=== PATIENT | male | born 1975 | race Caucasian/White ===

== ENCOUNTER 2023-03-06 07:55 | Day surgery (SDC) | payer OTHER, SELFPAY ==
[2023-01-23 13:26] VITALS: BMI 27.1
[2023-03-06 09:07] VITALS: BP 157/91; PULSE 78; RESP 16; TEMP 36.7; O2SAT 100
[2023-03-06] MEDS: LACTATED RINGERS 1,000 ML 150 ML IV CONT (09:22)
--- NOTE | 2023-03-06 09:33 | PM.HPGS ---
History of Present Illness History of Present Illness Consent: Risks, benefits, and alternatives have been discussed and questions answered. Patient agrees to proceed with procedure. Chief complaint: Neoplasm Screening Narrative: Hector Benson is a 47 year old male Presents for screening colonoscopy. Patient's current weight appetite and bowel movements are normal. Patient denies abdominal pain. He has had no bleeding. Family history is non contributory. Review of Systems Review of Systems: systems noncontributory. PMF Social History Social History Smoking status: Never smoker Substance use type: does not use Living arrangements: with family Spiritual care concerns: No Meds Home Medications and Allergies Home Medications Medication Instructions Recorded Confirmed Type rosuvastatin 5 mg tablet 5 mg PO HS 02/19/23 03/06/23 History Allergies Allergy/AdvReac Type Severity Reaction Status Date / Time No Known Allergies Allergy Verified 03/06/23 09:03 Vital Signs Vital Signs - 24 hr 03/06/23 09:07 Temperature 98.0 F Pulse Rate 78 Respiratory Rate 16 Blood Pressure 157/91 H Pulse Oximetry 100 Oxygen Delivery Room Air Exam Narrative: Physical exam reveals patient to be a signs stable. HEENT exam is unremarkable. Patient is anicteric. Lungs are clear to auscultation and to percussion. Heart is sounds. Abdomen bowel sounds are present soft nontender with no organomegaly will external rectal exam is normal. Assessment and Plan Assessment and plan (1) Encounter for screening colonoscopy: Code(s): Z12.11 - Encounter for screening for malignant neoplasm of colon Status: Acute Assessment and Plan: Patient appears to be at average risk for colon polyps. Further recommendation Gagandeep Chirinos
--- NOTE | 2023-03-06 09:57 | P.PNAN_ITS ---
Anes - Initial Pre Proc Eval Procedure: Operation Date: 03/06/23 10:30 Proposed Procedures p Screening Colonoscopy - Filipe Darby MD Date/Time: 03/06/23 09:57 Surgeon: Filipe Darby MD Pre Op Diagnosis: Neoplasm Screening Patient Data Age: 47 Gender: M Height: 1.8 m Weight: 88.6 kg Last Vital Signs Temp 36.7 C 03/06/23 09:07 Pulse 78 03/06/23 09:07 Resp 16 03/06/23 09:07 BP 157/91 H 03/06/23 09:07 Pulse Ox 100 03/06/23 09:07 O2 Del Method Room Air 03/06/23 09:07 Allergies Allergy/AdvReac Type Severity Reaction Status Date / Time No Known Allergies Allergy Verified 03/06/23 09:03 Home Medications Medication Instructions Recorded Confirmed Type rosuvastatin 5 mg tablet 5 mg PO HS 02/19/23 03/06/23 History Patient hx anesthesia problems: none Family hx anesthesia problems: none Results Review: All pre-operative results and documents have been reviewed as part of the pre- operative evaluation. PMFSH Past Medical History Medical History (Updated 03/06/23 @ 09:58 by Nilay Ro MD) Hyperlipidemia Melanoma Surgical History Surgical History (Updated 03/06/23 @ 09:58 by Nilay Ro MD) H/O melanoma excision left chest with sentinel node biopsy Social History Social History Smoking status: Never smoker Substance use type: does not use Living arrangements: with family Spiritual care concerns: No Anes - Eval Final PreProcedure Day of Procedure 03/06/23 09:57 Patient weight: overweight Heart: regular rate and rhythm Lungs: clear to auscultation Airway: Mallampati scale class 1 Neurological: alert and oriented Last oral intake: >/= 8 hours ASA classification: II Emergent: no Anesthetic plan: proceed Anesthesia type and monitoring: general GIVS and standard monitoring Results Review: All pre-operative results and documents have been reviewed as part of the pre- operative evaluation. Informed Consent: The patient's anesthetic plan and its attendant risks and benefits were discussed with the patient/family/POA. Questions were solicited and answers provided to the satisfaction of the patient/family/POA.
[2023-03-06 11:03] VITALS: BP 97/71; PULSE 78; RESP 16; O2SAT 100
[2023-03-06 11:13] VITALS: BP 102/60; PULSE 80; RESP 20; O2SAT 100
[2023-03-06 11:23] VITALS: BP 106/68; PULSE 68; RESP 20; O2SAT 100
--- NOTE | 2023-03-06 11:29 | WPDANESPN ---
Anes - Prog Note Post-Op Date/Time: 03/06/23 11:29 Cardiovascular status: normal Respiratory status: normal Airway patency: baseline Mental status: baseline Post-Op hydration status: normal Vital Signs: Last Vital Signs Temp 36.7 C 03/06/23 09:07 Pulse 68 03/06/23 11:23 Resp 20 03/06/23 11:23 BP 106/68 03/06/23 11:23 Pulse Ox 100 03/06/23 11:23 O2 Del Method Room Air 03/06/23 11:23 Pain Score (VAS): 0/10 I/O: Intake & Output 03/05/23 03/06/23 03/06/23 23:59 07:59 15:59 Intake Total 650 Balance 650 Patient Feedback: Patient satisfied with anesthetic care.
== END 2023-03-06 11:40 | disposition home or self-care (01) ==
PROVIDERS: PCP Internal Medicine; Visit Provider Internal Medicine Gastroenterology
PROC: 0DJD8ZZ Inspection of Lower Intestinal Tract, Via Natural or Artificial Opening Endoscopic (ICD-10-PCS; CPT 45378; principal; 2023-03-06 10:30)
DX: Z12.11 Encounter for screening for malignant neoplasm of colon (principal); K64.8 Other hemorrhoids
CPT/HCPCS: 45378